=== PATIENT | male | born 1960 | race Two or more races ===

== ENCOUNTER 2023-09-04 05:43 | Inpatient (IN) | payer BC ==
[2023-09-04 06:07] LABS: BASOPHILS PERCENT AUTO 0.5 % (0.0-1.0); EOSINOPHILS ABSOLUTE AUTO 0.1 K/mm3 (0.0-0.4); EOSINOPHILS PERCENT AUTO 0.8 % (0.0-6.0); HEMATOCRIT 41.8 % (42.0-52.0); HEMOGLOBIN 13.8 gm/dl (14.0-18.0); IMMATURE GRAN ABSOLUTE AUTO 0.01 K/mm3 (0.00-0.05); IMMATURE GRAN PERCENT AUTO 0.2 % (0.0-0.4); LYMPHOCYTES ABSOLUTE AUTO 2.4 K/mm3 (1.0-4.8); LYMPHOCYTES PERCENT AUTO 35.7 % (24.0-44.0); MEAN CORPUSCULAR HEMOGLOBIN 30.2 pg (28.0-32.0); MEAN CORPUSCULAR VOLUME 91.5 fl (83.0-99.0); MEAN PLATELET VOLUME 10.5 fl (9.4-12.4); MONOCYTES ABSOLUTE AUTO 0.6 K/mm3 (0.0-0.8); MONOCYTES PERCENT AUTO 9.3 % (0.0-8.0); NEUTROPHILS ABSOLUTE AUTO 3.6 K/mm3 (1.8-7.7); NEUTROPHILS PERCENT AUTO 53.5 % (41.0-71.0); PLATELET COUNT,PLT 160 K/mm3 (150-400); RED BLOOD CELL COUNT 4.57 M/mm3 (4.52-5.90); WHITE BLOOD CELL COUNT,WBC 6.66 K/mm3 (3.9-11.3)
[2023-09-04 06:24] LABS: PROTHROMBIN TIME 9.9 SECONDS (9.7-12.0)
[2023-09-04 06:26] LABS: PTT,PARTIAL THROMBOPLSTIN TIME 27.8 SECONDS (21.7-31.4)
[2023-09-04 06:27] LABS: ALBUMIN 3.8 g/dl (3.4-5.0); ANION GAP 10.7 (5-15); BILIRUBIN TOTAL 0.3 mg/dL (0.2-1.0); BUN/CREATININE RATIO 14.2 (14-18); C-REACTIVE PROTEIN 0.93 mg/dL (<0.30); CALCIUM 8.6 mg/dL (8.5-10.1); CREATININE 1.2 mg/dL (0.7-1.3); EST CRCL DRUG DOSING (CG) 79.34 mL/min; MAGNESIUM 1.9 mg/dL (1.8-2.4); POTASSIUM,K 3.7 mEq/L (3.5-5.1); PROTEIN TOTAL,TP 7.7 g/dl (6.4-8.2)
[2023-09-04] MEDS: Sodium Chloride 0.9% 100 ML IV SCH (06:35)
[2023-09-04] MEDS: Iopamidol 755 Mg/ML 100 ML Bottle IVPUSH ONE (06:35)
[2023-09-04 06:38] LABS: INR < 0.93
[2023-09-04 06:48] LABS: HEMOGLOBIN A1C 7.3 %
[2023-09-04] MEDS: Sodium Chloride 0.9% 1,000 ML IV SCH (07:21)
[2023-09-04] MEDS ORDERED: Docusate Sodium 100 MG Cap PO PRN (07:54)
[2023-09-04] MEDS ORDERED: Ondansetron 4 MG Tab.DIS PO PRN (07:54)
[2023-09-04] MEDS ORDERED: Acetaminophen 325 MG Tab PO PRN (07:54)
[2023-09-04] MEDS ORDERED: Ondansetron 4 MG/2 ML SDV IV PRN (07:54)
[2023-09-04] MEDS: Heparin Sodium 5,000 Units/ML Vial SUBCUT SCH (08:58)
[2023-09-04] MEDS: Aspirin 325 MG Tab.EC PO SCH (08:58)
[2023-09-04] MEDS: Clopidogrel 75 MG Tab PO SCH (08:58)
[2023-09-04] MEDS: Insulin Lispro 100 Unit/ML 3 ML KwikPen SUBCUT SCH (11:25)
[2023-09-04] MEDS: atorvaSTATin 40 MG Tab PO SCH (21:28)
[2023-09-05 04:52] LABS: BASOPHILS PERCENT AUTO 0.2 % (0.0-1.0); EOSINOPHILS PERCENT AUTO 0.7 % (0.0-6.0); HEMATOCRIT 42.2 % (42.0-52.0); HEMOGLOBIN 13.8 gm/dl (14.0-18.0); IMMATURE GRAN ABSOLUTE AUTO 0.01 K/mm3 (0.00-0.05); IMMATURE GRAN PERCENT AUTO 0.2 % (0.0-0.4); LYMPHOCYTES ABSOLUTE AUTO 2.2 K/mm3 (1.0-4.8); LYMPHOCYTES PERCENT AUTO 37.1 % (24.0-44.0); MEAN CORPUSCULAR HEMOGLOBIN 28.9 pg (28.0-32.0); MEAN CORPUSCULAR HGB CONC 32.7 g/dl (32.0-36.0); MEAN CORPUSCULAR VOLUME 88.3 fl (83.0-99.0); MEAN PLATELET VOLUME 10.8 fl (9.4-12.4); MONOCYTES ABSOLUTE AUTO 0.5 K/mm3 (0.0-0.8); MONOCYTES PERCENT AUTO 8.8 % (0.0-8.0); NEUTROPHILS ABSOLUTE AUTO 3.1 K/mm3 (1.8-7.7); PLATELET COUNT,PLT 161 K/mm3 (150-400); RED BLOOD CELL COUNT 4.78 M/mm3 (4.52-5.90); WHITE BLOOD CELL COUNT,WBC 5.82 K/mm3 (3.9-11.3)
[2023-09-05 05:13] LABS: BUN/CREATININE RATIO 12.5 (14-18); CALCIUM 8.5 mg/dL (8.5-10.1); CREATININE 0.8 mg/dL (0.7-1.3); EST CRCL DRUG DOSING (CG) 119.01 mL/min; MAGNESIUM 1.9 mg/dL (1.8-2.4)
== END 2023-09-05 10:31 | disposition home or self-care (01) | DRG 45 ==
LOC: JD.ED 05:43 → JD.MS 07:54
PROVIDERS: ADMIT Hospitalist; ATTEND Physician Assistant
DX: I63.89 Other cerebral infarction (principal); E11.59 Type 2 diabetes mellitus with other circulatory complications; F17.200 Nicotine dependence, unspecified, uncomplicated; I10 Essential (primary) hypertension; G51.0 Bell's palsy; R47.01 Aphasia; Z79.899 Other long term (current) drug therapy
CPT/HCPCS: 36415; 70450; 70450-26; 70496; 70496-26; 70498; 70498-26; 70551; 70551-26; 80048; 80053; 80061; 82947; 83036; 83735; 83880; 84484; 85025; 85610; 85730; 86140; 93005; 93010; 96360; 97161-GP; 99223; 99239; 99285; 99285-25; A9270-GY; J1644; J3490; J7030; Q9967

== ENCOUNTER 2023-09-20 12:55 | Emergency (ER) | payer BC ==
[2023-09-20] MEDS: Tetracaine HCl/PF 0.5% 4 ML Bottle EYELF ONE (14:28)
[2023-09-20] MEDS: Fluorescein 1 MG Ophth Strip EYELF ONE (14:29)
[2023-09-20] MEDS: Ofloxacin 0.3% Ophth Soln 5 ML Bottle EYELF ONE (14:29)
== END 2023-09-20 14:37 | disposition home or self-care (01) ==
LOC: JD.ED 12:55
DX: S05.02XA Injury of conjunctiva and corneal abrasion without foreign body, left eye, initial encounter (principal); I10 Essential (primary) hypertension; E11.9 Type 2 diabetes mellitus without complications; Z79.02 Long term (current) use of antithrombotics/antiplatelets; Z79.82 Long term (current) use of aspirin; Z79.899 Other long term (current) drug therapy; X58.XXXA Exposure to other specified factors, initial encounter
CPT/HCPCS: 99283; A9270-GY; J3490

== ENCOUNTER 2024-12-28 15:38 | Emergency (ER) | payer BC, OTHER | END 2024-12-28 16:48 | disposition home or self-care (01) | LOC: JD.ED 15:38 | DX: B37.0 Candidal stomatitis (principal); B37.81 Candidal esophagitis; I10 Essential (primary) hypertension; E78.00 Pure hypercholesterolemia, unspecified; E11.9 Type 2 diabetes mellitus without complications; Z86.73 Personal history of transient ischemic attack (TIA), and cerebral infarction without residual deficits; Z79.899 Other long term (current) drug therapy; Z91.030 Bee allergy status; Z91.038 Other insect allergy status | CPT/HCPCS: 99283 ==